=== PATIENT | male | born 1995 | race Caucasian/White ===

== ENCOUNTER 2019-05-02 20:36 | Emergency (ER) | payer BC ==
--- NOTE | 2019-05-02 21:06 | RAD ---
XR Hand Rt 3 View STANDARD: 05/02/2019 8:40 PM CLINICAL INDICATION: Right hand pain after punching floor of boat COMPARISON: None. FINDINGS: Bones: There is a obliquely oriented, dorsally angulated proximal small finger metacarpal shaft frac ture with overlying soft tissue swelling. Joints: Joint spaces are preserved.. Soft Tissue: Soft tissue swelling of the dorsal ulnar right hand. IMPRESSION: Small finger metacarpal shaft fracture.
[2019-05-02] MEDS ORDERED: Lidocaine 1% (PF) 30 ML VIAL ONE (22:40)
== END 2019-05-02 23:15 | disposition home or self-care (01) ==
LOC: ERS 20:36
DX: S62.326A Displaced fracture of shaft of fifth metacarpal bone, right hand, initial encounter for closed fracture (principal); W22.8XXA Striking against or struck by other objects, initial encounter
CPT/HCPCS: 29125; J2001